=== PATIENT | female | born 1990 | race Two or more races ===

== ENCOUNTER 2021-10-21 09:50 | Observation (INO) | payer MEDICAID ==
[2021-10-21] MEDS ORDERED: PREN-96 PO (12:10)
== END 2021-10-21 12:33 | disposition home or self-care (01) ==
LOC: LDRP 09:50
PROVIDERS: ADMIT Obstetrics & Gynecology; ATTEND Obstetrics & Gynecology
DX: O36.5930 Maternal care for other known or suspected poor fetal growth, third trimester, not applicable or unspecified (principal); Z3A.35 35 weeks gestation of pregnancy
CPT/HCPCS: 59025; 76818; 94760; G0378

== ENCOUNTER 2021-10-28 10:45 | Observation (INO) | payer MEDICAID ==
[~2021-10-28 10:45] MED LIST: PREN-96 PO
== END 2021-10-28 12:57 | disposition home or self-care (01) ==
LOC: UNDOADMOB 10:45 → LDRP 10:45 → UNDODISOB 12:57
PROVIDERS: ADMIT Obstetrics & Gynecology; ATTEND Obstetrics & Gynecology
DX: O36.5930 Maternal care for other known or suspected poor fetal growth, third trimester, not applicable or unspecified (principal); Z3A.36 36 weeks gestation of pregnancy
CPT/HCPCS: 59025; 76818; 81002; 94760; G0378

== ENCOUNTER 2021-11-03 09:25 | Observation (INO) | payer MEDICAID ==
[~2021-11-03] VITALS: Ht 167.6 cm; Wt 73.9 kg
[2021-11-03] MEDS ORDERED: SODIUM FERR GLUC 62.5MG/5ML 125 MG in SODIUM CHL 0.9% 100 ML IV ONE (10:45)
[2021-11-03 11:25] LABS: Hematocrit 28.7 % (36.0-46.0); Hemoglobin 8.7 g/dL (12.2-16.2)
== END 2021-11-03 13:59 | disposition home or self-care (01) ==
LOC: LDRP 09:25 → UNDOADMOB 09:25 → LDRP 10:37
PROVIDERS: ADMIT Obstetrics & Gynecology; ATTEND Obstetrics & Gynecology
DX: O36.5930 Maternal care for other known or suspected poor fetal growth, third trimester, not applicable or unspecified (principal); O99.013 Anemia complicating pregnancy, third trimester; D64.9 Anemia, unspecified; Z3A.37 37 weeks gestation of pregnancy
CPT/HCPCS: 36415; 59025; 76818; 81002; 85014; 85018; 94760; 96365; G0378; J2916; J7050

== ENCOUNTER 2021-11-10 11:01 | Observation (INO) | payer MEDICAID ==
[2021-11-10] MEDS ORDERED: TERBUTALINE SULFATE 1 MG/ML 1ML VIAL SC ONE (13:15)
== END 2021-11-10 14:04 | disposition home or self-care (01) ==
LOC: LDRP 11:01 → UNDOADMOB 11:01 → LDRP 11:32
PROVIDERS: ADMIT Obstetrics & Gynecology; ATTEND Obstetrics & Gynecology
DX: O24.419 Gestational diabetes mellitus in pregnancy, unspecified control (principal); O36.5930 Maternal care for other known or suspected poor fetal growth, third trimester, not applicable or unspecified; Z3A.38 38 weeks gestation of pregnancy; Z98.891 History of uterine scar from previous surgery
CPT/HCPCS: 59025; 76818; 81002; 96372; G0378; J3105